=== PATIENT | female | born 1945 | race Caucasian/White ===

== ENCOUNTER → 2016-12-25 | Outpatient (REF) | payer MEDICARE, OTHER ==
[~2016-12-25] MED LIST: ALPR2TAB3 PO; BUPR300T34; CALC1CAP31; ESCI20TA; FLOM5CAP PO; GLUC500C5 PO; NALT50TA4 PO; PERC5TAB12 PO; TYLE500T78 PO; VITA200028 PO; ZETI10TA30
[2016-12-29 00:07] LABS: HERPES HUMAN VIRUS #6 BY PCR Negative (Negative)
== END ==
LOC: M LAB REF 16:46
PROVIDERS: ATTEND Nurse Practitioner Adult Health
DX: R53.83 Other fatigue (principal); D51.9 Vitamin B12 deficiency anemia, unspecified

== ENCOUNTER → 2017-02-13 | Outpatient (REF) | payer MEDICARE, OTHER ==
[2017-02-19 00:06] LABS: HERPES HUMAN VIRUS #6 BY PCR Negative (Negative)
== END ==
LOC: M LAB REF 17:29
PROVIDERS: ATTEND Nurse Practitioner Adult Health
DX: R53.82 Chronic fatigue, unspecified (principal)

== ENCOUNTER 2017-03-16 16:10 | Emergency (ER) | payer MEDICARE, OTHER ==
[~2017-03-16] VITALS: Ht 170.2 cm; Wt 81.8 kg
[2017-03-16] MEDS ORDERED: BUPR300T34 (16:28)
[2017-03-16] MEDS ORDERED: ZETI10TA30 (16:28)
[2017-03-16] MEDS ORDERED: NALT50TA4 PO (16:28)
[2017-03-16] MEDS ORDERED: GLUC500C5 PO (16:28)
[2017-03-16] MEDS ORDERED: ESCI20TA (16:28)
[2017-03-16] MEDS ORDERED: CALC1CAP31 (16:28)
[2017-03-16] MEDS ORDERED: VITA200028 PO (16:30)
[2017-03-16] MEDS ORDERED: TYLE500T78 PO (16:30)
[2017-03-16] MEDS ORDERED: ALPR2TAB3 PO (16:30)
[2017-03-16] MEDS ORDERED: NS 1,000 ML IV ONE (17:15)
--- NOTE | 2017-03-16 17:54 | REP ---
Clinical: Right lower abdominal pain. Findings: Moderate acute right-sided obstructive uropathy with perinephric stranding, hydroureteronephrosis and periureteral stranding secondary to a 5 mm calculus approaching the ureterovesicle junction (images 123 - 124). No further urinary tract calcifications are appreciated and the left kidney/ureter and bladder are grossly unremarkable. Liver, spleen, pancreas, gallbladder, and bilateral adrenal glands are normal for noncontrast evaluation. The enteric system is without obstruction or acute inflammatory process. Pelvis demonstrates collapsed bladder with small amount of nondependent gas possibly related to recent catheterization. Normal, age-appropriate uterus/adnexa noted. No pelvic fluid or ascites. No free air. No significant adenopathy. Moderate atherosclerotic changes of the aorta and vasculature without aneurysm. Skeletal structures demonstrate degenerative changes without focal osseous abnormality Impression: 1. Moderate acute right-sided obstructive uropathy with a 5 mm calculus obstructing the distal left ureter/UVJ. No further urinary tract calcifications are appreciated. 2. No further acute abdominopelvic pathology appreciated. Signed by Jung Colorado MD 03/16/2017 05:46 P
[2017-03-16 18:23] LABS: CALCIUM LEVEL 8.5 MG/DL (8.8-10.2); CREATININE FOR GFR 1.24 MG/DL (0.55-1.02); GLOMERULAR FILTRATION RATE 45.7 (>45); POTASSIUM SERUM 4.1 MEQ/L (3.5-5.1)
[2017-03-16] MEDS ORDERED: FLOM5CAP PO (18:55)
[2017-03-16] MEDS ORDERED: PERC5TAB12 PO ×2 (18:59→20:55)
[2017-03-16] MEDS ORDERED: MORPHINE 4 MG/ML 1ML SYRINGE IV ONE ×3 (19:00→19:30)
[2017-03-16] MEDS ORDERED: BACTRIM 160MG/800MG DS TAB PO ONE (19:15)
[2017-03-16] MEDS ORDERED: TAMSULOSIN 0.4 MG CAP PO ONE (20:00)
[2017-03-16] MEDS ORDERED: cefTRIAXone SOD 1 GM in D5W MINI-BAG PLUS 50 ML IV ONE (20:00)
[2017-03-16] MEDS ORDERED: ONDANSETRON 4MG/2ML VIAL (J2405) As Ordered ONE (20:16)
[2017-03-16] MEDS ORDERED: CIPROFLOXACIN 500 MG TAB PO ONE (20:45)
[2017-03-16] MEDS ORDERED: PERCOCET 5MG/325MG TAB PO ONE (20:45)
[2017-03-16 21:10] VITALS: BP 162/70
[2017-03-16] MEDS ORDERED: ONDANSETRON 4MG/2ML VIAL (J2405) IV ONE (21:15)
== END 2017-03-16 21:31 | disposition home or self-care (01) ==
LOC: M ED 16:10
DX: N20.1 Calculus of ureter (principal); N18.9 Chronic kidney disease, unspecified
CPT/HCPCS: 74176; 80048; 81001; 87088; 87186; 96374; 96375; 96376; 99284; J0696; J2405

== ENCOUNTER → 2017-05-20 | Outpatient (REF) | payer MEDICARE, OTHER | LOC: M LAB REF 17:20 | PROVIDERS: ATTEND Nurse Practitioner Adult Health | DX: Z91.19 Patient's noncompliance with other medical treatment and regimen (principal) ==

== ENCOUNTER → 2017-09-20 | Outpatient (REF) | payer MEDICARE, OTHER | LOC: M LAB REF 12:27 | DX: N39.0 Urinary tract infection, site not specified (principal) | CPT/HCPCS: 87186 ==

== ENCOUNTER → 2017-12-27 | Outpatient (REF) | payer MEDICARE, OTHER ==
[2017-12-29 09:18] LABS: LDL DIRECT 135 mg/dL (0-99)
== END ==
LOC: M LAB REF 16:55
DX: E78.00 Pure hypercholesterolemia, unspecified (principal)
CPT/HCPCS: 83721

== ENCOUNTER → 2018-02-24 | Outpatient (REF) | payer MEDICARE, BC ==
[2018-02-28 08:06] LABS: O+P EXAM Final report (.)
== END ==
LOC: M LAB REF 16:11
DX: B80 Enterobiasis (principal)
CPT/HCPCS: 87177

== ENCOUNTER 2018-11-27 14:54 | Outpatient (RCR) | payer MEDICARE, BC ==
[~2018-11-27 14:54] MED LIST changes: +ASCO100013 PO; +B-COSUB2 SL; -BUPR300T34; +BUPR300T34 PO; -CALC1CAP31; +CALC1CAP31 PO; +COQ150CH PO; +DOCU-129 PO; +FLOM0.4C39 PO; -FLOM5CAP PO; +LEXA1TAB2 PO; +OMEG12002 PO; +SIMV10TA2 PO; +TH DTAB2 PO
== END 2018-12-05 ==
LOC: M PR 14:54
PROVIDERS: ATTEND Internal Medicine
DX: J84.10 Pulmonary fibrosis, unspecified (principal)
CPT/HCPCS: G0424 ×2

== ENCOUNTER 2018-12-26 14:00 | Outpatient (RCR) | payer MEDICARE, BC | END 2019-01-04 | LOC: M PR 14:00 | PROVIDERS: ATTEND Internal Medicine | DX: J84.10 Pulmonary fibrosis, unspecified (principal) ==

== ENCOUNTER 2019-02-02 15:40 | Outpatient (RCR) | payer MEDICARE, BC | END 2019-02-04 | LOC: M PR 15:40 | PROVIDERS: ATTEND Internal Medicine | DX: J84.10 Pulmonary fibrosis, unspecified (principal) | CPT/HCPCS: G0424 ×3 ==

== ENCOUNTER 2019-02-16 14:45 | Outpatient (RCR) | payer MEDICARE, BC ==
[~2019-02-16 14:45] MED LIST changes: +ZETI10TA16; -ZETI10TA30
== END 2019-03-07 ==
LOC: M PR 14:45
PROVIDERS: ATTEND Internal Medicine
DX: J84.10 Pulmonary fibrosis, unspecified (principal)
CPT/HCPCS: G0424 ×2